=== PATIENT | male | born 1975 | race Caucasian/White ===

== ENCOUNTER 2019-08-01 08:11 | Emergency (ER) | payer OTHER ==
[~2019-08-01] VITALS: Ht 177.8 cm; Wt 68.0 kg
[2019-08-01] MEDS ORDERED: NOHOMEMEDICATIONS (08:23)
[2019-08-01] MEDS ORDERED: CYCLOBENZAPRINE5 MG PO (10:38)
[2019-08-01] MEDS ORDERED: HYDROCODON-ACE1 EAC7 PO (10:38)
[2019-08-01] MEDS ORDERED: MEDROLDOSEPACK PO (10:38)
[2019-08-01 10:44] VITALS: BP 131/92
== END 2019-08-01 10:46 | disposition home or self-care (01) ==
LOC: M.ERS 08:11
DX: S30.0XXA Contusion of lower back and pelvis, initial encounter (principal); W01.0XXA Fall on same level from slipping, tripping and stumbling without subsequent striking against object, initial encounter; Y93.89 Activity, other specified; Y92.89 Other specified places as the place of occurrence of the external cause; Y99.8 Other external cause status